=== PATIENT | male | born 1985 | race African-American/Black ===

== ENCOUNTER 2024-09-07 19:57 | Emergency (ER) | payer OTHER ==
[~2024-09-07] VITALS: Ht 175.3 cm; Wt 68.0 kg
[~2024-09-07 19:57] MED LIST: DECADRON4 MG PO; NAPROSYN375 MG PO; NAPROXEN EC500 MG PO; NO HOME MEDS; PERCOCET 5/325M1 TAB PO
[2024-09-07] MEDS ORDERED: Acetaminophen 300 MG/Codeine 30 MG/COMBO PO ONE (20:35)
[2024-09-07] MEDS ORDERED: DICLOFENAC SODIUM 75 MG/TAB PO ONE (20:35)
[2024-09-07] MEDS ORDERED: TRAMADOL HYDROC50 M1 PO (20:38)
[2024-09-07] MEDS ORDERED: VOLTAREN - GENE75 MG PO (20:38)
[2024-09-07 20:49] VITALS: BP 129/70
[2024-09-07 21:01] VITALS: BP 106/50
[2024-09-07 21:15] VITALS: BP 117/69
[2024-09-07 21:23] VITALS: BP 117/69
== END 2024-09-07 21:23 | disposition home or self-care (01) | DRG 950 ==
LOC: ED 19:57
DX: S20.222D Contusion of left back wall of thorax, subsequent encounter (principal); X58.XXXD Exposure to other specified factors, subsequent encounter; F17.200 Nicotine dependence, unspecified, uncomplicated

== ENCOUNTER 2025-01-02 14:51 | Emergency (ER) | payer OTHER ==
[~2025-01-02] VITALS: Ht 175.3 cm; Wt 72.6 kg
[~2025-01-02 14:51] MED LIST changes: +TRAMADOL HYDROC50 M1 PO; +VOLTAREN - GENE75 MG PO
[2025-01-02] MEDS ORDERED: GABAPENTIN100 MG PO (15:06)
[2025-01-02 15:25] VITALS: BP 136/89
[2025-01-02 15:30] VITALS: BP 123/77
[2025-01-02 15:45] VITALS: BP 136/88
[2025-01-02 15:48] VITALS: BP 126/84
[2025-01-02] MEDS ORDERED: FLEXERIL5 M1 PO (15:53)
[2025-01-02 15:55] VITALS: BP 126/84
== END 2025-01-02 16:02 | disposition home or self-care (01) | DRG 552 ==
LOC: ED 14:51
DX: S13.161A Dislocation of C5/C6 cervical vertebrae, initial encounter (principal); F17.200 Nicotine dependence, unspecified, uncomplicated; W22.8XXA Striking against or struck by other objects, initial encounter; Y99.0 Civilian activity done for income or pay